=== PATIENT | female | born 1975 | race Caucasian/White ===

== ENCOUNTER 2019-09-01 17:08 | Inpatient (IN) | payer OTHER ==
[~2019-09-01] VITALS: Ht 154.9 cm; Wt 84.4 kg
[2019-09-06] MEDS ORDERED: CIPRO500 MG PO (08:46)
[2019-09-06] MEDS ORDERED: PEPCID AC20 MG PO (08:46)
[2019-09-06] MEDS ORDERED: FLAGYL500MG PO (08:46)
[2019-09-06] MEDS ORDERED: INTESTINEX680 M1 PO (08:46)
== END 2019-09-06 10:09 | disposition home or self-care (01) | DRG 392 ==
LOC: ER 17:08 → MEDJ 09-02 11:31 → SEC-K 09-02 11:31 → MEDJ 09-02 14:11
PROVIDERS: ADMIT Internal Medicine
PROC: BW21YZZ Computerized Tomography (CT Scan) of Abdomen and Pelvis using Other Contrast (ICD-10-PCS; principal; 2019-09-02)
DX: K57.32 Diverticulitis of large intestine without perforation or abscess without bleeding (principal); E86.0 Dehydration; E87.8 Other disorders of electrolyte and fluid balance, not elsewhere classified; K76.0 Fatty (change of) liver, not elsewhere classified; E66.09 Other obesity due to excess calories